=== PATIENT | female | born 2000 | race African-American/Black ===

== ENCOUNTER 2022-08-15 16:39 | Inpatient (IN) | payer BC, SELFPAY ==
[2022-08-15 16:40] VITALS: BP 130/78; BP 131/81; PULSE 73; PULSE 88; RESP 16; TEMP 37.1; O2SAT 97; BMI 21.9
--- NOTE | 2022-08-15 16:47 | ED_ITS ---
HPI - Psych General Chief Complaint: Psychiatric Symptoms Stated Complaint: section 12 Time Seen by Provider: 08/15/22 16:51 Source: patient Mode of arrival: ambulatory Limitations: no limitations History of Present Illness HPI Narrative: 21-year-old female history of major depression [facility] Section 12. According to this section was filled out by the behavioral health team patient has been off their meds for a while, paranoid and not functioning in terms of her activities of daily living. She is lacking insight, judgment, impulse control and does not feel safe in the community. According to patient she does not know why she is here she tells me she reached out to a counselor who set her up and she tells me now she is here. She tells me she voiced some concerns to this counselor, counselor explained her that these are major concerns and they called 911. Patient denies homicidal ideation and suicidal ideation. Denies drugs, alcohol, tobacco. Patient denies medical complaints at this time Related Data Allergies Allergy/AdvReac Type Severity Reaction Status Date / Time No Known Allergies Allergy Verified 08/15/22 17:00 Review of Systems Review of Systems: Constitutional : No Fever, No Chills ENT/Mouth : No Ear Pain, No Nasal Congestion, No sore throat Eyes: No Eye Pain, No Swelling, No Redness Cardiovascular : No Chest Pain, No SOB Respiratory : No Cough, No Sputum, No Dyspnea Gastrointestinal : No Nausea, No Vomiting, No Diarrhea, No Hematochezia, No Melena Genitourinary : No Dysuria, No Urinary Frequency, No Hematuria Musculoskeletal : No Myalgias Skin : No Skin Lesions, No rash Neuro : No Weakness, No Numbness, No Paresthesias, No Dizziness, No Headache Psych : positive Anxiety, positive Depression, No SI/HI All other systems reviewed and are negative Yes all other systems are reviewed and are negative [facility] Past Medical History Attestation statement: The following information was validated with the patient. Source: old records reviewed and nursing notes reviewed Social History Social History Smoked in Last 30 Days: No Use of substances other than those prescribed or required for medical reasons: No Physical Exam Vital Signs: Vital Signs: Last Vital Signs Temp 98.8 F 02/28/23 16:40 Pulse 73 08/15/22 16:40 Resp 16 08/15/22 16:40 BP 131/81 08/15/22 16:40 Pulse Ox 97 08/15/22 16:40 O2 Del Method 08/15/22 16:40 BMI result Body Mass Index 21.9 vss Appearance: Alert.? Oriented X3.? No acute distress.? Flat affect Head: Normocephalic, atraumatic, no step-offs or deformities Eyes: Pupils equal, round and reactive to light.? Neck: Normal inspection.? Neck supple.? CVS: Normal heart rate and rhythm.? Pulses normal.? Respiratory: No respiratory distress.? Breath sounds normal.? Abdomen: Soft and nontender.? Skin: Skin warm and dry.? Normal skin color.? Normal skin turgor.? Extremities: No lower extremity edema.? No calf ttp. 5/5 strength to bilateral upper and lower extremities Neuro: Oriented X 3.? No motor deficit.? No sensory deficit. CN 2-12 intact Course Reevaluation(s) Reevaluation #1: CBC appears to be within normal limits. Chemistry with no acute findings. Urine with no acute findings no signs of infection. Salicylates, acetaminophen, ethanol negative. Urine toxicology negative. COVID negative. At this time patient will be placed into observation to allow more time to be evaluated by the care team. At time observation was started patient common cooperative no acute distress will continue to monitor Time: 19:11 Reevaluation #2: In patient bedsearch Time: 19:35 Medical Decision Making Medical Decision Making [facility] Narrative: 1647 21-year-old female presents with anxiety, depression on a Section 12 for paranoia. Was seen in the community by the behavioral health team. Physical examination benign however, patient with flat affect. Concerns for possible depression versus schizophrenia. Unlikely polysubstance abuse, alcohol intoxication or metabolic disturbances. Plan at this time medical clearance evaluation by the behavioral health team pending disposition Differential Diagnosis Differential Diagnoses: The differential diagnosis associated with the presentation includes Concerns for possible depression versus schizophrenia. Unlikely polysubstance abuse, alcohol intoxication or metabolic disturbances. Admission/Observation Consideration of admission/observation: Escalation of care including admission/observation considered Consult Healthcare Provider Management of the patient was discussed with: Behavioral Health Provider ([place] bedsearch ) Lab Data [facility] Lab Attestation statement: I reviewed the patient's lab results. 08/15/22 17:04 08/15/22 17:04 Labs: Lab Results 08/15/22 08/15/22 08/15/22 Range/Units 17:04 17:04 17:04 WBC 7.8 (4.8-10.8) X10*3/uL RBC 4.53 (4.20-5.50) X10*6/uL Hgb 12.2 (12.0-16.0) g/dl Hct 37.0 (37.0-47.0) % MCV 81.7 (80.0-98.0) fL MCH 26.9 L (27.0-33.0) pg MCHC 33.0 (31.0-35.0) g/dl RDW 13.2 (11.0-16.0) % Plt Count 306 (160-400) X10*3/uL MPV 10.8 (9.4-12.3) fL Immature Gran % (Auto) 0.1 (0.0-0.4) % Neut % (Auto) 62.2 (45-73) % Lymph % (Auto) 27.7 (20-40) % [place] % (Auto) 8.7 (2-11) % Eos % (Auto) 0.8 (0-4) % Baso % (Auto) 0.5 (0-2) % Lymph # (Auto) 2.2 (1.2-4.9) X10*3/uL [place] # (Auto) 0.7 (0.1-1.2) X10*3/uL Eos # (Auto) 0.1 (0.0-0.4) X10*3/uL Baso # (Auto) 0.0 (0.0-0.2) X10*3/uL Abs Immat Gran (auto) 0.01 (0.00-0.03) X10*3/uL Absolute Neuts (auto) 4.9 (2.0-8.3) x10*3/uL Absolute Nucleated RBC 0.000 (0.0-0.012) X10*3/uL Nucleated RBC % (auto) 0.0 (0.0-0.2) /100WBC Sodium 136 (135-145) mmol/L Potassium 4.2 (3.3-5.1) mmol/L Chloride 104 (96-108) mmol/L Carbon Dioxide 21 L (22-29) mmol/L Anion Gap 15 (12-20) BUN 6 L (9-16) mg/dL Creatinine 0.85 (0.5-1.4) mg/dL Estim Creat Clear Calc 81.3 Estimated GFR > 60 Random Glucose 89 (60-115) mg/dL Calcium 9.3 (8.4-10.2) mg/dL Magnesium 1.9 (1.6-2.6) mg/dL Total Bilirubin 0.6 (0.0-1.0) mg/dL AST 17 (5-31) U/L ALT 8 (0-31) U/L Alkaline Phosphatase 55 (39-117) U/L Total Protein 7.4 (6.5-8.0) g/dL Albumin 4.1 (3.5-5.0) g/dL Urine Color Urine Appearance Urine pH (5.0-9.0) Ur Specific [place] (1.005-1.025) Urine Protein (Neg-Trace) mg/dL Urine Glucose (UA) (Negative) mg/dL Urine Ketones (Negative) mg/dL Urine Blood (Negative) Urine Nitrite (Negative) Ur Leukocyte Esterase (Negative) Urine RBC (0-2) /HPF Urine WBC (0-5) /HPF Ur Squamous Epith Cells (0-2) /HPF Urine Bacteria (None Seen) Hyaline Casts (0-2) /LPF Salicylates < 5.0 L (15-30) mg/dL Urine Opiates Screen (Not Detect) Urine Fentanyl Screen (Not Detect) Acetaminophen < 17 (<30) mcg/mL Ur Barbiturates Screen (Not Detect) Ur Phencyclidine Scrn (Not Detect) Ur Amphetamines Screen (Not Detect) U Benzodiazepines Scrn (Not Detect) Urine Cocaine Screen (Not Detect) U Marijuana (THC) Screen (Not Detect) Ethyl Alcohol < 10 mg/dL COVID-19 ([place]) Negative (Negative) COVID-19 Clin Com See Note 08/15/22 08/15/22 Range/Units 17:04 17:04 WBC (4.8-10.8) X10*3/uL RBC (4.20-5.50) X10*6/uL Hgb (12.0-16.0) g/dl Hct (37.0-47.0) % MCV (80.0-98.0) fL MCH (27.0-33.0) pg MCHC (31.0-35.0) g/dl RDW (11.0-16.0) % Plt Count (160-400) X10*3/uL MPV (9.4-12.3) fL Immature Gran % (Auto) (0.0-0.4) % Neut % (Auto) (45-73) % Lymph % (Auto) (20-40) % [place] % (Auto) (2-11) % Eos % (Auto) (0-4) % Baso % (Auto) (0-2) % Lymph # (Auto) (1.2-4.9) X10*3/uL [place] # (Auto) (0.1-1.2) X10*3/uL Eos # (Auto) (0.0-0.4) X10*3/uL Baso # (Auto) (0.0-0.2) X10*3/uL Abs Immat Gran (auto) (0.00-0.03) X10*3/uL Absolute Neuts (auto) (2.0-8.3) x10*3/uL Absolute Nucleated RBC (0.0-0.012) X10*3/uL Nucleated RBC % (auto) (0.0-0.2) /100WBC Sodium (135-145) mmol/L Potassium (3.3-5.1) mmol/L Chloride (96-108) mmol/L Carbon Dioxide (22-29) mmol/L Anion Gap (12-20) BUN (9-16) mg/dL Creatinine (0.5-1.4) mg/dL Estim Creat Clear Calc Estimated GFR Random Glucose (60-115) mg/dL Calcium (8.4-10.2) mg/dL Magnesium (1.6-2.6) mg/dL Total Bilirubin (0.0-1.0) mg/dL AST (5-31) U/L ALT (0-31) U/L Alkaline Phosphatase (39-117) U/L Total Protein (6.5-8.0) g/dL Albumin (3.5-5.0) g/dL Urine Color Yellow Urine Appearance Clear Urine pH 7.0 (5.0-9.0) Ur Specific [place] <= 1.005 (1.005-1.025) Urine Protein Negative (Neg-Trace) mg/dL Urine Glucose (UA) Negative (Negative) mg/dL Urine Ketones Negative (Negative) mg/dL Urine Blood Negative (Negative) Urine Nitrite Negative (Negative) Ur Leukocyte Esterase Small (1+) H (Negative) Urine RBC 0-2 (0-2) /HPF Urine WBC 0-5 (0-5) /HPF Ur Squamous Epith Cells 3-5 (0-2) /HPF Urine Bacteria None Seen (None Seen) Hyaline Casts 0-2 (0-2) /LPF Salicylates (15-30) mg/dL Urine Opiates Screen Not Detected (Not Detect) Urine Fentanyl Screen Not Detected (Not Detect) Acetaminophen (<30) mcg/mL Ur Barbiturates Screen Not Detected (Not Detect) Ur Phencyclidine Scrn Not Detected (Not Detect) Ur Amphetamines Screen Not Detected (Not Detect) U Benzodiazepines Scrn Not Detected (Not Detect) Urine Cocaine Screen Not Detected (Not Detect) U Marijuana (THC) Screen Not Detected (Not Detect) Ethyl Alcohol mg/dL COVID-19 ([place]) (Negative) COVID-19 Clin Com Core Measures AMI core measures followed: Yes Measure exclusions: not indicated Critical Care Time Critical Care Time Critical Care Time: No Discharge Plan Discharge Clinical Impression: Depression Patient Disposition: Still a Patient Interventions: [place]-Suicide Risk Severity Scale Last Done: 08/15/22 17:04
[2022-08-15 17:23] LABS: MANUAL DIFF FLAG NO
[2022-08-15 17:27] LABS: Appearance Urine Clear; Color Urine Yellow; Glucose Urine UA Negative (Negative); Leukocyte Esterase Urine Small (1+) (Negative); Nitrite Urine Negative (Negative); Specific Gravity - Urine <= 1.005 (1.005-1.025); UMIC TRIGGER UACC YES; Urine Blood Negative (Negative); Urine Ketones Negative (Negative); Urine Protein Negative (Neg-Trace)
[2022-08-15 17:32] LABS: Basophils Percent Auto 0.5 % (0-2); Eosinophils Absolute Auto 0.1 X10*3/uL (0.0-0.4); Eosinophils Percent Auto 0.8 % (0-4); Hemoglobin 12.2 g/dl (12.0-16.0); Imm Gran Abs Auto 0.01 X10*3/uL (0.00-0.03); Imm Gran Pct Auto 0.1 % (0.0-0.4); Lymphocytes Absolute Auto 2.2 X10*3/uL (1.2-4.9); Lymphocytes Percent Auto 27.7 % (20-40); Mean Corpuscular Hemoglobin 26.9 pg (27.0-33.0); Mean Corpuscular Volume 81.7 fL (80.0-98.0); Mean Platelet Volume 10.8 fL (9.4-12.3); Monocytes Absolute Auto 0.7 X10*3/uL (0.1-1.2); Monocytes Percent Auto 8.7 % (2-11); Neutrophils Absolute Auto 4.9 x10*3/uL (2.0-8.3); Neutrophils Percent Auto 62.2 % (45-73); Platelet Count 306 X10*3/uL (160-400); Red Blood Count 4.53 X10*6/uL (4.20-5.50); Red Cell Distribution Width 13.2 % (11.0-16.0); White Blood Count 7.8 X10*3/uL (4.8-10.8)
[2022-08-15 17:37] LABS: IDNOW Serial# 9DB6401D
[2022-08-15 17:38] LABS: COVID-19 Test Negative (Negative)
[2022-08-15 17:39] LABS: Bacteria Urine None Seen (None Seen); Hyaline Casts Urine 0-2 /LPF (0-2); RBC Urine 0-2 /HPF (0-2); UACC Culture Trigger YES; WBC Urine 0-5 /HPF (0-5)
[2022-08-15 17:40] LABS: Amphetamine Screen Urine Not Detected (Not Detect); Barbiturates, Urine Not Detected (Not Detect); Benzodiazepines Screen Urine Not Detected (Not Detect); Cannabinoid Screen Urine Not Detected (Not Detect); Cocaine Screen Urine Not Detected (Not Detect); Fentanyl, urine Not Detected (Not Detect); Opiate Screen Urine Not Detected (Not Detect); Phencyclidine Screen Urine Not Detected (Not Detect)
[2022-08-15 17:58] LABS: Acetaminophen LAB < 17 mcg/mL (<30); Alanine Aminotransferase 8 U/L (0-31); Albumin Level 4.1 g/dL (3.5-5.0); Alkaline Phosphatase 55 U/L (39-117); Anion Gap 15 (12-20); Aspartate Amino Transferase 17 U/L (5-31); Bilirubin Total 0.6 mg/dL (0.0-1.0); Blood Urea Nitrogen 6 mg/dL (9-16); Calcium 9.3 mg/dL (8.4-10.2); Carbon Dioxide 21 mmol/L (22-29); Chloride 104 mmol/L (96-108); Creatinine Clr Calc Pharmacy 81.3; Estimated Glomerular Filt Rate > 60; Ethanol < 10 mg/dL; Glucose Random 89 mg/dL (60-115); Magnesium 1.9 mg/dL (1.6-2.6); Potassium 4.2 mmol/L (3.3-5.1); Salicylate < 5.0 mg/dL (15-30); Sodium 136 mmol/L (135-145); Total Protein 7.4 g/dL (6.5-8.0)
[2022-08-15 23:04] VITALS: BP 111/70; PULSE 78; RESP 16; TEMP 37; O2SAT 98
--- NOTE | 2022-08-16 05:58 | PC.NURSE ---
Patient slept through the night, no distress observed/reported, disposition per [facility] is section 12 inpatient bed search, med rec completed/pending provider's approval, behavior non concerning, VSS, will continue to monitor.
[2022-08-16 14:12] VITALS: BP 116/76; RESP 18
--- NOTE | 2022-08-16 14:14 | PC.NURSE ---
Pt became mildly dizzy sitting up from bed, BP was taken 116/76. Resolved on own.
[2022-08-16] MEDS: hydrOXYzine HCL 25 MG TABLET PO (15:26)
--- NOTE | 2022-08-16 16:01 | PC.ADMIT ---
Patient is a 21 y/o female admitted to the unit from the pod on a CV at 1415. The patient has a dx of Major Depressive d/o, severe, unspecified Mental d/o. Patient has a had an increase in paranoia, depression and anxiety r/t risk of homelessness, car repossession and a financial hardship. She is expressing a declined in her ability to function each day. The pt was anxious upon entering the unit, extreme shaking of bilateral arms and hands, also reported feeling weak. Once pt was doing admission she stopped visibly shaking. Pt was A&O x4, mood labile and suspicious. Pt denies SI/HI/AH/VH. Pt reports an increase in her paranoia , but is vague and avoidant with explanations. Pt became fixated on information TW knew from the [facility] intake, asking why information was shared and wanted to know how she could read the intake. Pt then said, I shouldn't have come here. . Pt denied trauma or at risk of losing housing, but here intake implies the opposite. Pt denies that any medications will help her and reports that, she couldn't get them the last time they were ordered in July. . Pt blames recent stressors on, moving out of her mothers home and becoming independent, and losing a job . Pt said, I'm 21, I should be able to be on my own but instead I'm in a mental hospital. Pt also angry that when she calls her family they don't allow her to vent. Pt reports poor sleep due to racing thoughts. Pt reports a good appetite, tox screen negative. The pt has had on e IPLOC stay, PHP X1 and CSS X2 in the last few years. Patient placed on 15 minute safety checks.
[2022-08-16 16:30] VITALS: BP 103/56; PULSE 76; RESP 18; TEMP 36.8; O2SAT 99
[2022-08-17 07:00] VITALS: BMI 18.3
[2022-08-17 08:25] VITALS: BP 116/70; PULSE 90; RESP 14; TEMP 36.8; O2SAT 99
[2022-08-17] MEDS: Escitalopram Oxalate 10 MG TABLET PO (08:25)
[2022-08-17] MEDS: hydrOXYzine HCL 25 MG TABLET PO ×3 (08:25→20:41)
--- NOTE | 2022-08-17 13:44 | P.HPPS_ITS ---
HPI Date of Service: 08/17/22 Chief Complaint: SI HPI Narrative: seen individually as well as with social work therapist sriram. pt vague and evasive historian, ultimately informs MD she has a developmental disability when MD pushes, telling her we cannot do our best to help her if she withholds relevant information. she repeatedly says, this is exhausintg, and describes herself as overwhelmed. she links this state to her moving out from her house 2 years ago to live on her own. she has found the normal demands of life - working, paying for a car and rent, addressing ADLs, as unmanageable. she recently lost her car to repossession because she lost her job and could not keep up the payments. now she is facing losing her apartment as well. she reportedly called crisis telling them she could not continue to have her mental health deteriorate her everyday functioning. she reported increased anxiety and insomnia. she is having fraught relations with her family members, as she feels they have essentially abandoned her. she was started on lexapro 10 for anxiety and depression and hydroxyzine 25 TID for anxiety in the pod. zyprexa 5 QHS for insomnia and paranoia was started on admission to the unit. she identified insomnia and not understanding what i need to be doing as her most troubling experiences. DALJIT bhatia was called in after pt identified her developmental disability in order to explore resources for her in the community. pt clearly very overwhelmed by her experience, often becoming paralyzed with fear, or frustration, or sadness. agreed to DALJIT bhatia to collect collateral and inquire as to available services for her and to regroup tomorrow. Past Psychiatric History: hosps: [facility] summer 2021. feeling overwhelmed. SA: denies SIB: denies outpt: just started trherapy, no prescriber. no meds. Medical Evaluation Reviewed: Yes PMFSH Narrative: anemia asthma Family History: sister - anxiety denies SA Hx in family Social History: h/o IEP. developmental disability. HS grad. left home 2 years ago, has had a very hard time living independently since, regularly feeling overwhelmed by life's demands. Substance History: no use of tobacco or any other substances or recreational drugs Trauma History: denies Diagnostics Vital Signs (24Hr): Vital Signs - 24 hr 08/16/22 14:12 08/16/22 16:30 08/17/22 08:25 Temperature 98.3 F 98.3 F Pulse Rate 76 90 Respiratory Rate 18 18 14 Blood Pressure 116/76 103/56 L 116/70 Pulse Oximetry 99 99 Oxygen Delivery Method Room Air Room Air BMI result Body Mass Index 21.9 Labs 08/15/22 17:04 08/15/22 17:04 Labs: Laboratory Results - last 48 hr 08/15/22 08/15/22 08/15/22 17:04 17:04 17:04 WBC 7.8 RBC 4.53 Hgb 12.2 Hct 37.0 MCV 81.7 MCH 26.9 L MCHC 33.0 RDW 13.2 Plt Count 306 MPV 10.8 Immature Gran % (Auto) 0.1 Neut % (Auto) 62.2 Lymph % (Auto) 27.7 [place] % (Auto) 8.7 Eos % (Auto) 0.8 Baso % (Auto) 0.5 Lymph # (Auto) 2.2 [place] # (Auto) 0.7 Eos # (Auto) 0.1 Baso # (Auto) 0.0 Abs Immat Gran (auto) 0.01 Absolute Neuts (auto) 4.9 Absolute Nucleated RBC 0.000 Nucleated RBC % (auto) 0.0 Sodium 136 Potassium 4.2 Chloride 104 Carbon Dioxide 21 L Anion Gap 15 BUN 6 L Creatinine 0.85 Estim Creat Clear Calc 81.3 Estimated GFR > 60 Random Glucose 89 Calcium 9.3 Magnesium 1.9 Total Bilirubin 0.6 AST 17 ALT 8 Alkaline Phosphatase 55 Total Protein 7.4 Albumin 4.1 Urine Color Urine Appearance Urine pH Ur Specific [place] Urine Protein Urine Glucose (UA) Urine Ketones Urine Blood Urine Nitrite Ur Leukocyte Esterase Urine RBC Urine WBC Ur Squamous Epith Cells Urine Bacteria Hyaline Casts Salicylates < 5.0 L Urine Opiates Screen Urine Fentanyl Screen Acetaminophen < 17 Ur Barbiturates Screen Ur Phencyclidine Scrn Ur Amphetamines Screen U Benzodiazepines Scrn Urine Cocaine Screen U Marijuana (THC) Screen Ethyl Alcohol < 10 COVID-19 ([place]) Negative COVID-19 Clin Com See Note 08/15/22 08/15/22 17:04 17:04 WBC RBC Hgb Hct MCV MCH MCHC RDW Plt Count MPV Immature Gran % (Auto) Neut % (Auto) Lymph % (Auto) [place] % (Auto) Eos % (Auto) Baso % (Auto) Lymph # (Auto) [place] # (Auto) Eos # (Auto) Baso # (Auto) Abs Immat Gran (auto) Absolute Neuts (auto) Absolute Nucleated RBC Nucleated RBC % (auto) Sodium Potassium Chloride Carbon Dioxide Anion Gap BUN Creatinine Estim Creat Clear Calc Estimated GFR Random Glucose Calcium Magnesium Total Bilirubin AST ALT Alkaline Phosphatase Total Protein Albumin Urine Color Yellow Urine Appearance Clear Urine pH 7.0 Ur Specific [place] <= 1.005 Urine Protein Negative Urine Glucose (UA) Negative Urine Ketones Negative Urine Blood Negative Urine Nitrite Negative Ur Leukocyte Esterase Small (1+) H Urine RBC 0-2 Urine WBC 0-5 Ur Squamous Epith Cells 3-5 Urine Bacteria None Seen Hyaline Casts 0-2 Salicylates Urine Opiates Screen Not Detected Urine Fentanyl Screen Not Detected Acetaminophen Ur Barbiturates Screen Not Detected Ur Phencyclidine Scrn Not Detected Ur Amphetamines Screen Not Detected U Benzodiazepines Scrn Not Detected Urine Cocaine Screen Not Detected U Marijuana (THC) Screen Not Detected Ethyl Alcohol COVID-19 ([place]) COVID-19 Clin Com Meds/Allergies Meds Home Medications Medication Instructions Recorded Confirmed Type escitalopram oxalate 10 mg tablet 1 tab PO DAILY 08/15/22 08/15/22 History hydroxyzine HCl 25 mg tablet 1 tab PO TID 08/15/22 08/15/22 History Allergies Allergies Allergy/AdvReac Type Severity Reaction Status Date / Time No Known Allergies Allergy Verified 08/15/22 17:00 Mental Status Exam Mental Status Exam Narrative: cooperative. generally, calm, periods of crying and slight agitation in f rustration. disheveled, hospital [facility]. no PMA/PMR. speech nml rate, amount loudness, latency, overall. periods of elevated and increased speech when agitated. none when crying. thoughts linear and logical but also often vague and evasive, or resigned and dismissive. affect variable. constricted and non- labile to labile/irritable, to crying. mood anxious, overwhelmed. denies SI/HI/AVH. Assessment & Plan Assessment & Plan (1) Depression: Status: Acute Code(s): F32.A - Depression, unspecified (2) Developmental disability: Status: Acute Code(s): F89 - Unspecified disorder of psychological development Plan continue lexapro 10 mg daily and hydroxyzine 25 mg TID. start zyprexa 5 mg QHS for sleep and paranoia. refer for DDS services, collect collateral. Patient educated on: diagnosis and medication risk/benefits Reason for continued inpatient stay Substantial Risk for: inability to function and rapid decompensation Statement Statement: I have reviewed the history and physical and performed a pertinent examination on my patient. No changes have occurred unless specified. If the History and Physical was not performed prior to admission, the Hospitalist's service will be consulted for completing the admission physical. Time Spent With Patient Time: Total time managing care of this patient today __75__ minutes.
[2022-08-17 20:40] VITALS: BP 96/52; PULSE 701; RESP 16; TEMP 36.9; O2SAT 98
[2022-08-17] MEDS: OLANZapine 5 MG TABLET PO (20:42)
[2022-08-18 09:32] VITALS: BP 94/51; PULSE 66; RESP 16; TEMP 36.7; O2SAT 99
[2022-08-18] MEDS: Escitalopram Oxalate 10 MG TABLET PO (10:12)
[2022-08-18] MEDS: hydrOXYzine HCL 25 MG TABLET PO ×2 (10:13→14:55)
--- NOTE | 2022-08-18 15:01 | HO.PSYCHPN ---
Subjective Subjective Date of Service: 08/18/22 Reason For Visit: SI Interim History: sleeping, difficult to rouse. says she didn't sleep well last night but also feels sedated by meds. agrees to DC HS dose of atarax. does not want to cut HS zyprexa currently. per staff, stressed, anxious. in bed, napping. not attending groups, crying. upset feeling she does not have support from her family. overwhelmed. slept throguh the NOC. poor ADLs. Mental Status Exam Mental Status Exam Narrative: cooperative. calm. disheveled, hospital [facility]. no PMA/PMR. speech nml rate, decr amount, decr loudness, incr latency. thoughts vague. mood just tired. no SI/HI/AVH expressed. Diagnostics Vital Signs (24Hr): Vital Signs - 24 hr 08/17/22 20:40 08/18/22 09:32 Temperature 98.5 F 98.1 F Pulse Rate 701 H 66 Respiratory Rate 16 16 Blood Pressure 96/52 L 94/51 L Pulse Oximetry 98 99 Oxygen Delivery Method Room Air Room Air BMI result Body Mass Index 18.3 Labs 08/15/22 17:04 08/15/22 17:04 Medications Medications Current Medications Acetaminophen (Acetaminophen 325 Mg Tablet) 650 mg PO Q6H PRN PRN Reason: Headache/Pain Mild Scale (1-3) Al Hydroxide/Mg Hydroxide (Magnesium Hydrox/Alum Hydrox 30 Ml Oral.Susp) 30 ml PO Q6H PRN PRN Reason: Heartburn/Nausea Escitalopram Oxalate (Escitalopram Oxalate 10 Mg Tablet) 10 mg PO DAILY [facility] Last Admin: 08/18/22 10:12 Dose: 10 mg Hydroxyzine HCl (Hydroxyzine Hcl 25 Mg Tablet) 25 mg PO Q6H PRN PRN Reason: Anxiety Hydroxyzine HCl (Hydroxyzine Hcl 25 Mg Tablet) 25 mg PO BID@0900,1500 [facility] Magnesium Hydroxide (Milk Of Magnesia 30 Ml Oral.Susp) 30 ml PO DAILY PRN PRN Reason: Constipation Nicotine Polacrilex (Nicotine Polacrilex 2 Mg Gum) 4 mg BUCCAL Q2H PRN PRN Reason: Nicotine Cravings Olanzapine (Olanzapine 5 Mg Tablet) 5 mg PO BEDTIME [facility] Last Admin: 08/17/22 20:42 Dose: 5 mg Trazodone HCl (Trazodone Hcl 50 Mg Tablet) 50 mg PO BEDTIME MRX1 PRN PRN Reason: Insomnia Allergies Allergies Allergy/AdvReac Type Severity Reaction Status Date / Time No Known Allergies Allergy Verified 08/15/22 17:00 Assessment & Plan Assessment & Plan (1) Depression: Status: Acute Code(s): F32.A - Depression, unspecified (2) Developmental disability: Status: Acute Code(s): F89 - Unspecified disorder of psychological development Plan 08/17: continue lexapro 10 mg daily and hydroxyzine 25 mg TID. start zyprexa 5 mg QHS for sleep and paranoia. refer for DDS services, collect collateral. 08/18: DC HS dose of hydroxyzine due to apparent sedation today. if sedation continues tomorrow, lower HS zyprexa to 2.5 mg. Reason for contiued inpatient stay Substantial Risk for: inability to function and rapid decompensation Time Spent With Patient Time: Total time managing care of this patient today __20__ minutes.
[2022-08-18 18:00] VITALS: BP 108/56; PULSE 64; RESP 18; TEMP 36.6; O2SAT 97
[2022-08-19] MEDS: Escitalopram Oxalate 10 MG TABLET PO (09:20)
[2022-08-19] MEDS: Acetaminophen 325 MG TABLET 650 MG PO ×2 (09:20→15:56)
[2022-08-19] MEDS: hydrOXYzine HCL 25 MG TABLET PO ×2 (09:20→15:53)
[2022-08-19 10:37] VITALS: BP 112/77; PULSE 86; RESP 18; TEMP 36.7; O2SAT 97
--- NOTE | 2022-08-19 12:47 | P.PNPSI_ITS ---
Subjective Subjective Date of Service: 08/19/22 Reason For Visit: SI Subjective Notes: Conditional Voluntary Healthcare Proxy: No Guardianship: No Medical Problems Affecting Mental Status: No Interim History: Met with pt who continues to complain of confused thoughts- can't figure it out feels might be all the stress, but has been different than sibs/friends Had IEP in school - but was not having trouble thinking like this- this is new Depressed, low energy, can't concentrate Discussed how could be depression, depression with thought disorder- anxiety - denied hx of trauma- Medication Compliance: Yes Side effects from medications: No (but very interested in what they are) Attending Groups: Intermittent Review of Systems Acute medical concerns: No Medical Review of Systems: unchanged Mental Status Exam Mental Status Exam Patient Appearance: Appropriate Patient Orientation: Person, Place, Time and Situation Level of Consciousness: Awake Patient Behavior: Guarded, Cooperative, Anxious, Fatigued, Distractible and Confused Mood Description: Anxious Affect Description: Apprehensive Patient Cognition Impaired: No Ability to Follow Directions: Fair Speech Pattern: Clear and Difficulty Finding Words (for her thoughts) Hallucinations: None Delusions: Not Present Thought Process: Confusion Thought Content: positive for Thought Blocking (?) and positive for Disorganized (slightly) Depressive Symptoms: Increased Anxiety, Diff. Making Decisions, Hopelessness, Isolating-Friends/Family, Increased Fatigue, Loss of Energy and Difficulty C oncentrating Abnormal Motor Activity Signs and Symptoms: Restlessness Judgement: Fair Diagnostics Vital Signs (24Hr): Vital Signs - 24 hr 08/18/22 18:00 08/19/22 10:37 Temperature 97.9 F 98.1 F Pulse Rate 64 86 Respiratory Rate 18 18 Blood Pressure 108/56 L 112/77 Pulse Oximetry 97 97 Oxygen Delivery Method Room Air Room Air BMI result Body Mass Index 18.3 Labs 08/15/22 17:04 08/15/22 17:04 Medications Medications Current Medications Acetaminophen (Acetaminophen 325 Mg Tablet) 650 mg PO Q6H PRN PRN Reason: Headache/Pain Mild Scale (1-3) Last Admin: 08/19/22 09:20 Dose: 650 mg Al Hydroxide/Mg Hydroxide (Magnesium Hydrox/Alum Hydrox 30 Ml Oral.Susp) 30 ml PO Q6H PRN PRN Reason: Heartburn/Nausea Escitalopram Oxalate (Escitalopram Oxalate 10 Mg Tablet) 10 mg PO DAILY [facility] Last Admin: 08/19/22 09:20 Dose: 10 mg Hydroxyzine HCl (Hydroxyzine Hcl 25 Mg Tablet) 25 mg PO Q6H PRN PRN Reason: Anxiety Hydroxyzine HCl (Hydroxyzine Hcl 25 Mg Tablet) 25 mg PO BID@0900,1500 [facility] Last Admin: 08/19/22 09:20 Dose: 25 mg Magnesium Hydroxide (Milk Of Magnesia 30 Ml Oral.Susp) 30 ml PO DAILY PRN PRN Reason: Constipation Nicotine Polacrilex (Nicotine Polacrilex 2 Mg Gum) 4 mg BUCCAL Q2H PRN PRN Reason: Nicotine Cravings Olanzapine (Olanzapine 5 Mg Tablet) 5 mg PO BEDTIME [facility] Last Admin: 08/18/22 23:35 Dose: Not Given Trazodone HCl (Trazodone Hcl 50 Mg Tablet) 50 mg PO BEDTIME MRX1 PRN PRN Reason: Insomnia Allergies Allergies Allergy/AdvReac Type Severity Reaction Status Date / Time No Known Allergies Allergy Verified 08/15/22 17:00 Assessment & Plan Assessment & Plan (1) Depression: Status: Acute Code(s): F32.A - Depression, unspecified Assessment and Plan: with trouble thinking but not catatonic- more confused (2) Developmental disability: Status: Acute Code(s): F89 - Unspecified disorder of psychological development Assessment and Plan: maybe but not sure this is what she is complaining about- at present- seems like it is a new change she complains of that has not been with her since childhood- though she may have ASD as well Plan 3/2: continue lexapro 10 mg daily and hydroxyzine 25 mg TID. start zyprexa 5 mg QHS for sleep and paranoia. refer for DDS services, collect collateral. 33: DC HS dose of hydroxyzine due to apparent sedation today. if sedation continues tomorrow, lower HS zyprexa to 2.5 mg. Patient educated on: diagnosis and medication risk/benefits Informed Consent: further education needed (gave her lots of print outs after confering with nursing- she might be able to give us more info about what she is feeling) Reason for contiued inpatient stay Substantial Risk for: rapid decompensation Time Spent With Patient Time: Total time managing care of this patient today ____ minutes.
[2022-08-19] MEDS: OLANZapine 5 MG TABLET PO (21:49)
[2022-08-19 21:52] VITALS: RESP 16
[2022-08-20 08:45] VITALS: BP 117/69; PULSE 76; RESP 20; TEMP 36.8; O2SAT 99
[2022-08-20] MEDS: Escitalopram Oxalate 10 MG TABLET PO (08:58)
[2022-08-20] MEDS: hydrOXYzine HCL 25 MG TABLET PO (08:58)
--- NOTE | 2022-08-20 14:04 | P.PNPSI_ITS ---
Subjective Subjective Date of Service: 08/20/22 Reason For Visit: SI Subjective Notes: Conditional Voluntary Healthcare Proxy: No Guardianship: No Medical Problems Affecting Mental Status: No Interim History: Pt sleeping all morning today- didn't get up and eat lunch would not get up and talk to provider pt was very engaged yesterday ? if medications are sedating or if information given was overwhelming to patient- She would not answer Medication Compliance: Yes Side effects from medications: Yes (?sedation will dc hydroxyzine standing dose) Attending Groups: No Review of Systems Acute medical concerns: No Medical Review of Systems: changed (tired) Mental Status Exam Mental Status Exam Narrative: patient lying in bed covered in covers- not coming out to speak with provider Diagnostics Vital Signs (24Hr): Vital Signs - 24 hr 08/19/22 21:52 08/20/22 08:45 Temperature 98.3 F Pulse Rate 76 Respiratory Rate 16 20 Blood Pressure 117/69 Pulse Oximetry 99 Oxygen Delivery Method Room Air BMI result Body Mass Index 18.3 Labs 08/15/22 17:04 08/15/22 17:04 Medications Medications Current Medications Acetaminophen (Acetaminophen 325 Mg Tablet) 650 mg PO Q6H PRN PRN Reason: Headache/Pain Mild Scale (1-3) Last Admin: 08/19/22 15:56 Dose: 650 mg Al Hydroxide/Mg Hydroxide (Magnesium Hydrox/Alum Hydrox 30 Ml Oral.Susp) 30 ml PO Q6H PRN PRN Reason: Heartburn/Nausea Escitalopram Oxalate (Escitalopram Oxalate 10 Mg Tablet) 10 mg PO DAILY [facility] Last Admin: 08/20/22 08:58 Dose: 10 mg Hydroxyzine HCl (Hydroxyzine Hcl 25 Mg Tablet) 25 mg PO Q6H PRN PRN Reason: Anxiety Hydroxyzine HCl (Hydroxyzine Hcl 25 Mg Tablet) 25 mg PO BID@0900,1500 [facility] Last Admin: 08/20/22 08:58 Dose: 25 mg Magnesium Hydroxide (Milk Of Magnesia 30 Ml Oral.Susp) 30 ml PO DAILY PRN PRN Reason: Constipation Nicotine Polacrilex (Nicotine Polacrilex 2 Mg Gum) 4 mg BUCCAL Q2H PRN PRN Reason: Nicotine Cravings Olanzapine (Olanzapine 5 Mg Tablet) 5 mg PO BEDTIME [facility] Last Admin: 08/19/22 21:49 Dose: 5 mg Trazodone HCl (Trazodone Hcl 50 Mg Tablet) 50 mg PO BEDTIME MRX1 PRN PRN Reason: Insomnia Allergies Allergies Allergy/AdvReac Type Severity Reaction Status Date / Time No Known Allergies Allergy Verified 08/15/22 17:00 Assessment & Plan Assessment & Plan (1) Depression: Status: Acute Code(s): F32.A - Depression, unspecified Assessment and Plan: with trouble thinking but not catatonic- more confused (2) Developmental disability: Status: Acute Code(s): F89 - Unspecified disorder of psychological development Assessment and Plan: maybe but not sure this is what she is complaining about- at present- seems like it is a new change she complains of that has not been with her since childhood- though she may have ASD as well Plan 3/2: continue lexapro 10 mg daily and hydroxyzine 25 mg TID. start zyprexa 5 mg QHS for sleep and paranoia. refer for DDS services, collect collateral. 3/3: DC HS dose of hydroxyzine due to apparent sedation today. if sedation continues tomorrow, lower HS zyprexa to 2.5 mg. Reason for contiued inpatient stay Substantial Risk for: inability to function and rapid decompensation Time Spent With Patient Time: Total time managing care of this patient today ____ minutes.
[2022-08-20 20:25] VITALS: BP 112/62; PULSE 73; RESP 14; TEMP 36.7; O2SAT 98
[2022-08-20] MEDS: OLANZapine 5 MG TABLET PO (21:11)
[2022-08-21 08:00] VITALS: BP 113/69; PULSE 65; TEMP 36.6; O2SAT 97
[2022-08-21] MEDS: Escitalopram Oxalate 10 MG TABLET PO (08:29)
--- NOTE | 2022-08-21 15:07 | HO.PSYCHPN ---
Subjective Subjective Date of Service: 08/21/22 Reason For Visit: SI Interim History: calm, cooperative. lots of questions, long pauses. yet, far more engageable than prior. able to have a meaningful exchange of ideas. pt feels that the zyprexa has helped her a lot, to get her thoughts organized. still some trouble sleeping last night. declines increase in zyprexa to 7.5 mg at HS. asking if this will happen again, if it will be worse, what is the Dx, will she need to be on medication for the rest of her life, etc. per staff, excessive daytime sleepiness. not attending groups. in milieu eves. pleasant. feels staff are treating her differently bcse she is in a psych unit. asking for medication education. Mental Status Exam Mental Status Exam Narrative: cooperative. generally, calm. disheveled, hospital [facility]. no PMA/PMR. speech nml rate, amount, loudness, latency. thoughts linear and logical. affect constricted, normo-intense, non-labile. no SI/HI/AVH expressed. Diagnostics Vital Signs (24Hr): Vital Signs - 24 hr 08/20/22 20:25 08/21/22 08:00 Temperature 98.1 F 97.9 F Pulse Rate 73 65 Respiratory Rate 14 Blood Pressure 112/62 113/69 Pulse Oximetry 98 97 Oxygen Delivery Method Room Air Room Air BMI result Body Mass Index 18.3 Labs 08/15/22 17:04 08/15/22 17:04 Medications Medications Current Medications Acetaminophen (Acetaminophen 325 Mg Tablet) 650 mg PO Q6H PRN PRN Reason: Headache/Pain Mild Scale (1-3) Last Admin: 08/19/22 15:56 Dose: 650 mg Al Hydroxide/Mg Hydroxide (Magnesium Hydrox/Alum Hydrox 30 Ml Oral.Susp) 30 ml PO Q6H PRN PRN Reason: Heartburn/Nausea Escitalopram Oxalate (Escitalopram Oxalate 10 Mg Tablet) 10 mg PO DAILY [facility] Last Admin: 08/21/22 08:29 Dose: 10 mg Hydroxyzine HCl (Hydroxyzine Hcl 25 Mg Tablet) 25 mg PO Q6H PRN PRN Reason: Anxiety Magnesium Hydroxide (Milk Of Magnesia 30 Ml Oral.Susp) 30 ml PO DAILY PRN PRN Reason: Constipation Nicotine Polacrilex (Nicotine Polacrilex 2 Mg Gum) 4 mg BUCCAL Q2H PRN PRN Reason: Nicotine Cravings Olanzapine (Olanzapine 5 Mg Tablet) 5 mg PO BEDTIME [facility] Last Admin: 08/20/22 21:11 Dose: 5 mg Trazodone HCl (Trazodone Hcl 50 Mg Tablet) 50 mg PO BEDTIME MRX1 PRN PRN Reason: Insomnia Allergies Allergies Allergy/AdvReac Type Severity Reaction Status Date / Time No Known Allergies Allergy Verified 08/15/22 17:00 Assessment & Plan Assessment & Plan (1) Depression: Status: Acute Code(s): F32.A - Depression, unspecified Assessment and Plan: with trouble thinking but not catatonic- more confused (2) Developmental disability: Status: Acute Code(s): F89 - Unspecified disorder of psychological development Assessment and Plan: maybe but not sure this is what she is complaining about- at present- seems like it is a new change she complains of that has not been with her since childhood- though she may have ASD as well Plan 08/17: continue lexapro 10 mg daily and hydroxyzine 25 mg TID. start zyprexa 5 mg QHS for sleep and paranoia. refer for DDS services, collect collateral. 08/18: DC HS dose of hydroxyzine due to apparent sedation today. if sedation continues tomorrow, lower HS zyprexa to 2.5 mg. 08/19: Met with pt who continues to complain of confused thoughts- can't figure it out feels might be all the stress, but has been different than sibs/friends Had IEP in school - but was not having trouble thinking like this- this is new Depressed, low energy, can't concentrate Discussed how could be depression, depression with thought disorder- anxiety - denied hx of trauma- 08/20: Pt sleeping all morning today- didn't get up and eat lunch would not get up and talk to provider pt was very engaged yesterday ? if medications are sedating or if information given was overwhelming to patient- She would not answer 08/21: up and about today. feeling zyprexa very helpful to get her thoughts together. declines increase even thought continues to have insomnia. DC of scheduled hydroxyzine seems to have been instrumental in waking pt up. continue current mgmt for now. planning for DC later this week. Patient educated on: diagnosis and medication risk/benefits Reason for contiued inpatient stay Substantial Risk for: inability to function and rapid decompensation Time Spent With Patient Time: Total time managing care of this patient today _45___ minutes.
[2022-08-21 21:35] VITALS: BP 120/74; PULSE 70; RESP 16; TEMP 26.6; O2SAT 98
[2022-08-21] MEDS: OLANZapine 5 MG TABLET PO (22:24)
[2022-08-21] MEDS: hydrOXYzine HCL 25 MG TABLET PO (22:28)
[2022-08-22] MEDS: Escitalopram Oxalate 10 MG TABLET PO (09:17)
[2022-08-22 09:18] VITALS: BP 119/80; PULSE 77; RESP 18; TEMP 36.6; O2SAT 97
--- NOTE | 2022-08-22 16:34 | P.PNPSI_ITS ---
Subjective Subjective Date of Service: 08/22/22 Reason For Visit: SI Interim History: calm, cooperative. seen with DALJIT olvera. many questions, long pauses. anxious, a bit paranoid. agrees to increase zyprexa to 7.5 mg tonight. had repeated MNA: hard to stay asleep. per staff, paranoid, suspiciouis. appeared to sleep throguh the night. Mental Status Exam Mental Status Exam Narrative: cooperative. generally, calm. disheveled, hospital [facility]. no PMA/PMR. speech nml rate, amount, loudness, latency. thoughts linear and logical. affect constricted, normo-intense, non-labile. no SI/HI/AVH expressed. Diagnostics Vital Signs (24Hr): Vital Signs - 24 hr 08/21/22 21:35 08/22/22 09:18 Temperature 79.8 F L 97.8 F Pulse Rate 70 77 Respiratory Rate 16 18 Blood Pressure 120/74 119/80 Pulse Oximetry 98 97 Oxygen Delivery Method Room Air Room Air BMI result Body Mass Index 18.3 Labs 08/15/22 17:04 08/15/22 17:04 Medications Medications Current Medications Acetaminophen (Acetaminophen 325 Mg Tablet) 650 mg PO Q6H PRN PRN Reason: Headache/Pain Mild Scale (1-3) Last Admin: 08/19/22 15:56 Dose: 650 mg Al Hydroxide/Mg Hydroxide (Magnesium Hydrox/Alum Hydrox 30 Ml Oral.Susp) 30 ml PO Q6H PRN PRN Reason: Heartburn/Nausea Escitalopram Oxalate (Escitalopram Oxalate 10 Mg Tablet) 10 mg PO DAILY [facility] Last Admin: 08/22/22 09:17 Dose: 10 mg Hydroxyzine HCl (Hydroxyzine Hcl 25 Mg Tablet) 25 mg PO Q6H PRN PRN Reason: Anxiety Last Admin: 08/21/22 22:28 Dose: 25 mg Magnesium Hydroxide (Milk Of Magnesia 30 Ml Oral.Susp) 30 ml PO DAILY PRN PRN Reason: Constipation Nicotine Polacrilex (Nicotine Polacrilex 2 Mg Gum) 4 mg BUCCAL Q2H PRN PRN Reason: Nicotine Cravings Olanzapine (Olanzapine 7.5 Mg Tablet) 7.5 mg PO BEDTIME [facility] Trazodone HCl (Trazodone Hcl 50 Mg Tablet) 50 mg PO BEDTIME MRX1 PRN PRN Reason: Insomnia Allergies Allergies Allergy/AdvReac Type Severity Reaction Status Date / Time No Known Allergies Allergy Verified 08/15/22 17:00 Assessment & Plan Assessment & Plan (1) Depression: Status: Acute Code(s): F32.A - Depression, unspecified Assessment and Plan: with trouble thinking but not catatonic- more confused (2) Developmental disability: Status: Acute Code(s): F89 - Unspecified disorder of psychological development Assessment and Plan: maybe but not sure this is what she is complaining about- at present- seems like it is a new change she complains of that has not been with her since childhood- though she may have ASD as well Plan 08/17: continue lexapro 10 mg daily and hydroxyzine 25 mg TID. start zyprexa 5 mg QHS for sleep and paranoia. refer for DDS services, collect collateral. 08/18: DC HS dose of hydroxyzine due to apparent sedation today. if sedation continues tomorrow, lower HS zyprexa to 2.5 mg. 08/19: Met with pt who continues to complain of confused thoughts- can't figure it out feels might be all the stress, but has been different than sibs/friends Had IEP in school - but was not having trouble thinking like this- this is new Depressed, low energy, can't concentrate Discussed how could be depression, depression with thought disorder- anxiety - denied hx of trauma- 08/20: Pt sleeping all morning today- didn't get up and eat lunch would not get up and talk to provider pt was very engaged yesterday ? if medications are sedating or if information given was overwhelming to patient- She would not answer 08/21: up and about today. feeling zyprexa very helpful to get her thoughts together. declines increase even thought continues to have insomnia. DC of scheduled hydroxyzine seems to have been instrumental in waking pt up. continue current mgmt for now. planning for DC later this week. 08/22: repeated MNA last night, agrees to increase zyprexa. discuss Dx, arrive at psychotic depression as most likely. continue current mgmt aside from as above. Reason for contiued inpatient stay Substantial Risk for: inability to function and rapid decompensation Time Spent With Patient Time: Total time managing care of this patient today __45__ minutes.
[2022-08-22 18:00] VITALS: BP 114/66; PULSE 77; RESP 18; TEMP 36.7; O2SAT 99
[2022-08-22] MEDS: hydrOXYzine HCL 25 MG TABLET PO (20:38)
[2022-08-22] MEDS: OLANZapine 7.5 MG TABLET PO (20:38)
[2022-08-23 08:47] VITALS: BP 114/64; PULSE 76; RESP 16; TEMP 36.6; O2SAT 99
[2022-08-23] MEDS: Escitalopram Oxalate 10 MG TABLET PO (08:49)
--- NOTE | 2022-08-23 10:12 | PC.NURSE ---
Pt. was seen in the group room by OT for [facility]enu's Cognitive Level Screen (ACLS) assessment of functional cognition. Pt. scored a 5.2 on the assessment indicating a mild cognitive impairment. It is recommended that the pt. receive weekly safety checks for monitoring of impulsivity. Pt. may require assistance with employment and could potentially benefit from receiving a scrum coach.
[2022-08-23] MEDS: hydrOXYzine HCL 25 MG TABLET PO ×2 (12:18→22:07)
--- NOTE | 2022-08-23 16:28 | HO.PSYCHPN ---
Subjective Subjective Date of Service: 08/23/22 Reason For Visit: SI Interim History: seen with DALJIT olvera. calm, cooperative. many questions, long pauses, feeling overwhelmed and unsure. feels her thoughts are not adequately improved and she is interested in staying longer for more med adjustments. poor sleep again, agrees to increase to 10 on zyprexa. would like [facility] for help with meds. per staff, pleasant. low anx/dep. feeling less confused, more clear. upset at perceived lack of support from family. feeling safe. sleeping at NOC. Mental Status Exam Mental Status Exam Narrative: cooperative. generally, calm. disheveled, hospital [facility]. no PMA/PMR. speech nml rate, amount, loudness, latency. thoughts linear and logical. affect constricted, normo-intense, non-labile. no SI/HI/AVH expressed. Diagnostics Vital Signs (24Hr): Vital Signs - 24 hr 08/22/22 18:00 08/23/22 08:47 Temperature 98.1 F 97.8 F Pulse Rate 77 76 Respiratory Rate 18 16 Blood Pressure 114/66 114/64 Pulse Oximetry 99 99 Oxygen Delivery Method Room Air Room Air BMI result Body Mass Index 18.3 Labs 08/15/22 17:04 08/15/22 17:04 Medications Medications Current Medications Acetaminophen (Acetaminophen 325 Mg Tablet) 650 mg PO Q6H PRN PRN Reason: Headache/Pain Mild Scale (1-3) Last Admin: 08/19/22 15:56 Dose: 650 mg Al Hydroxide/Mg Hydroxide (Magnesium Hydrox/Alum Hydrox 30 Ml Oral.Susp) 30 ml PO Q6H PRN PRN Reason: Heartburn/Nausea Escitalopram Oxalate (Escitalopram Oxalate 10 Mg Tablet) 10 mg PO DAILY [facility] Last Admin: 08/23/22 08:49 Dose: 10 mg Hydroxyzine HCl (Hydroxyzine Hcl 25 Mg Tablet) 25 mg PO Q6H PRN PRN Reason: Anxiety Last Admin: 08/23/22 12:18 Dose: 25 mg Magnesium Hydroxide (Milk Of Magnesia 30 Ml Oral.Susp) 30 ml PO DAILY PRN PRN Reason: Constipation Nicotine Polacrilex (Nicotine Polacrilex 2 Mg Gum) 4 mg BUCCAL Q2H PRN PRN Reason: Nicotine Cravings Olanzapine (Olanzapine 10 Mg Tablet) 10 mg PO BEDTIME [facility] Trazodone HCl (Trazodone Hcl 50 Mg Tablet) 50 mg PO BEDTIME MRX1 PRN PRN Reason: Insomnia Allergies Allergies Allergy/AdvReac Type Severity Reaction Status Date / Time No Known Allergies Allergy Verified 08/15/22 17:00 Assessment & Plan Assessment & Plan (1) Depression: Status: Acute Code(s): F32.A - Depression, unspecified Assessment and Plan: with trouble thinking but not catatonic- more confused (2) Developmental disability: Status: Acute Code(s): F89 - Unspecified disorder of psychological development Assessment and Plan: maybe but not sure this is what she is complaining about- at present- seems like it is a new change she complains of that has not been with her since childhood- though she may have ASD as well Plan 08/17: continue lexapro 10 mg daily and hydroxyzine 25 mg TID. start zyprexa 5 mg QHS for sleep and paranoia. refer for DDS services, collect collateral. 08/18: DC HS dose of hydroxyzine due to apparent sedation today. if sedation continues tomorrow, lower HS zyprexa to 2.5 mg. 08/19: Met with pt who continues to complain of confused thoughts- can't figure it out feels might be all the stress, but has been different than sibs/friends Had IEP in school - but was not having trouble thinking like this- this is new Depressed, low energy, can't concentrate Discussed how could be depression, depression with thought disorder- anxiety - denied hx of trauma- 08/20: Pt sleeping all morning today- didn't get up and eat lunch would not get up and talk to provider pt was very engaged yesterday ? if medications are sedating or if information given was overwhelming to patient- She would not answer 08/21: up and about today. feeling zyprexa very helpful to get her thoughts together. declines increase even thought continues to have insomnia. DC of scheduled hydroxyzine seems to have been instrumental in waking pt up. continue current mgmt for now. planning for DC later this week. 08/22: repeated MNA last night, agrees to increase zyprexa. discuss Dx, arrive at psychotic depression as most likely. continue current mgmt aside from as above. 08/23: once again feeling not well enough to leave. poor sleep. agrees to increase zyprexa to 10 mg. T/C mood stabilizer if pt continues to have sleeping difficulties. Reason for contiued inpatient stay Substantial Risk for: inability to function and rapid decompensation Time Spent With Patient Time: Total time managing care of this patient today __35__ minutes.
[2022-08-23 20:00] VITALS: BP 118/74; PULSE 66; RESP 18; TEMP 36.6; O2SAT 99
[2022-08-23] MEDS: OLANZapine 10 MG TABLET PO (20:46)
[2022-08-23] MEDS: traZODone HCL 50 MG TABLET PO ×2 (20:47→22:07)
[2022-08-24 07:00] VITALS: BMI 19.5
[2022-08-24] MEDS: Escitalopram Oxalate 10 MG TABLET PO (09:08)
[2022-08-24 09:15] VITALS: BP 106/58; PULSE 104; RESP 18; TEMP 36.7; O2SAT 97
--- NOTE | 2022-08-24 15:06 | HO.PSYCHPN ---
Subjective Subjective Date of Service: 08/24/22 Reason For Visit: SI Interim History: calm, cooperative. seen with DALJIT haasmatthew. reports no change in her sleep - still DFA as well as MNA. states she is less depressed and less anxious than prior, however. less confused as well. c/o muscle twitches in arm, informed to seek out RN if it becomes anything like a sustained contraction. asks to have trazodone and hydroxyzine scheduled at HS. would like to leave before sunday, which is [birth year] birthday. we all agree to give current regimen one more day and then meet again tomorrow to decide on discharge date. per staff, c/o poor sleep. still anxious and depressed, but improving. med and meal compliant. anxious about her family's opinions of her. some twitching in right arm last night. Mental Status Exam Mental Status Exam Narrative: cooperative. generally, calm. disheveled, hospital [facility]. no PMA/PMR. speech nml rate, amount, loudness, latency. thoughts linear and logical. affect constricted, normo-intense, non-labile. no SI/HI/AVH expressed. Diagnostics Vital Signs (24Hr): Vital Signs - 24 hr 08/23/22 20:00 08/24/22 09:15 Temperature 97.9 F 98.1 F Pulse Rate 66 104 H Respiratory Rate 18 18 Blood Pressure 118/74 106/58 L Pulse Oximetry 99 97 Oxygen Delivery Method Room Air Room Air BMI result Body Mass Index 18.3 Labs 08/15/22 17:04 08/15/22 17:04 Medications Medications Current Medications Acetaminophen (Acetaminophen 325 Mg Tablet) 650 mg PO Q6H PRN PRN Reason: Headache/Pain Mild Scale (1-3) Last Admin: 08/19/22 15:56 Dose: 650 mg Al Hydroxide/Mg Hydroxide (Magnesium Hydrox/Alum Hydrox 30 Ml Oral.Susp) 30 ml PO Q6H PRN PRN Reason: Heartburn/Nausea Escitalopram Oxalate (Escitalopram Oxalate 10 Mg Tablet) 10 mg PO DAILY RENAE Last Admin: 08/24/22 09:08 Dose: 10 mg Hydroxyzine HCl (Hydroxyzine Hcl 25 Mg Tablet) 25 mg PO BEDTIME RENAE Hydroxyzine HCl (Hydroxyzine Hcl 25 Mg Tablet) 25 mg PO Q6H PRN PRN Reason: Anxiety Last Admin: 08/23/22 22:07 Dose: 25 mg Magnesium Hydroxide (Milk Of Magnesia 30 Ml Oral.Susp) 30 ml PO DAILY PRN PRN Reason: Constipation Nicotine Polacrilex (Nicotine Polacrilex 2 Mg Gum) 4 mg BUCCAL Q2H PRN PRN Reason: Nicotine Cravings Olanzapine (Olanzapine 10 Mg Tablet) 10 mg PO BEDTIME RENAE Last Admin: 08/23/22 20:46 Dose: 10 mg Trazodone HCl (Trazodone Hcl 50 Mg Tablet) 50 mg PO BEDTIME RENAE Trazodone HCl (Trazodone Hcl 50 Mg Tablet) 50 mg PO BEDTIME MRX1 PRN PRN Reason: Insomnia Last Admin: 08/23/22 22:07 Dose: 50 mg Allergies Allergies Allergy/AdvReac Type Severity Reaction Status Date / Time No Known Allergies Allergy Verified 08/15/22 17:00 Assessment & Plan Assessment & Plan (1) Depression: Status: Acute Code(s): F32.A - Depression, unspecified Assessment and Plan: with trouble thinking but not catatonic- more confused (2) Developmental disability: Status: Acute Code(s): F89 - Unspecified disorder of psychological development Assessment and Plan: maybe but not sure this is what she is complaining about- at present- seems like it is a new change she complains of that has not been with her since childhood- though she may have ASD as well Plan 3/2: continue lexapro 10 mg daily and hydroxyzine 25 mg TID. start zyprexa 5 mg QHS for sleep and paranoia. refer for DDS services, collect collateral. 33: DC HS dose of hydroxyzine due to apparent sedation today. if sedation continues tomorrow, lower HS zyprexa to 2.5 mg. 08/19: Met with pt who continues to complain of confused thoughts- can't figure it out feels might be all the stress, but has been different than sibs/friends Had IEP in school - but was not having trouble thinking like this- this is new Depressed, low energy, can't concentrate Discussed how could be depression, depression with thought disorder- anxiety - denied hx of trauma- 08/20: Pt sleeping all morning today- didn't get up and eat lunch would not get up and talk to provider pt was very engaged yesterday ? if medications are sedating or if information given was overwhelming to patient- She would not answer 08/21: up and about today. feeling zyprexa very helpful to get her thoughts together. declines increase even thought continues to have insomnia. DC of scheduled hydroxyzine seems to have been instrumental in waking pt up. continue current mgmt for now. planning for DC later this week. 08/22: repeated MNA last night, agrees to increase zyprexa. discuss Dx, arrive at psychotic depression as most likely. continue current mgmt aside from as above. 08/23: once again feeling not well enough to leave. poor sleep. agrees to increase zyprexa to 10 mg. T/C mood stabilizer if pt continues to have sleeping difficulties. 08/24: twitch in arm last night. schedule trazodone and hydroxyzine at HS per pt request. otherwise continue current mgmt. D/C over w/e. Reason for contiued inpatient stay Substantial Risk for: inability to function and rapid decompensation Time Spent With Patient Time: Total time managing care of this patient today _35___ minutes.
[2022-08-24 22:25] VITALS: BP 90/53; PULSE 64; RESP 16; TEMP 36.4; O2SAT 98
[2022-08-24] MEDS: OLANZapine 10 MG TABLET PO (22:27)
[2022-08-24] MEDS: hydrOXYzine HCL 25 MG TABLET PO (22:28)
[2022-08-24] MEDS: traZODone HCL 50 MG TABLET PO (22:28)
[2022-08-25] MEDS: Escitalopram Oxalate 10 MG TABLET PO (09:31)
[2022-08-25 09:45] VITALS: BP 94/53; PULSE 91; RESP 18; TEMP 36.9; O2SAT 99
--- NOTE | 2022-08-25 11:45 | P.DS_ITS ---
DS: Providers Provider Date of Service: 08/25/22 Date of admission: 08/16/22 13:15 Primary care physician: Unknown Physician DS: Diagnosis Discharge Diagnosis (1) Depression: Status: Acute (2) Developmental disability: Status: Acute DS: Medications Discharge Medications Home Medications: Previous Rx's Medication Instructions Recorded escitalopram oxalate 10 mg tablet 1 tab PO DAILY 30 days #30 tabs 08/25/22 hydroxyzine HCl 25 mg tablet 25 mg PO BEDTIME 30 days #30 tabs 08/25/22 olanzapine 10 mg tablet 10 mg PO BEDTIME 30 days #30 tabs 08/25/22 trazodone 50 mg tablet 50 mg PO BEDTIME 30 days #30 tabs 08/25/22 Mental Status Exam Mental Status Exam Narrative: cooperative, calm. disheveled, hospital [facility]. no PMA/PMR. speech nml rate, incr amount. nml loudness, latency. thoughts linear and logical, clearly some paucity of thought and executive function deficits. affect constricted, normo- intense, non-labile. mood better. no SI/HI/AVH. Data Data Completed and Pending Completed studies during hospitalization [Text1]: 08/15/22 Unknown Urine clean catch - Urine pham top Urine Culture - Final Additional Comments Additional comments: recommend neuropsych testing to clarify deficits DS: Summary Hospital Course Hospital Course: per 08/17 admission note: seen individually as well as with social media marketing manager sriram.? pt vague and evasive historian, ultimately informs MD she has a developmental disability when MD pushes, telling her we cannot do our best to help her if she withholds relevant information.? she repeatedly says, this is exhausintg, and describes herself as overwhelmed. ? she links this state to her moving out from her house 2 years ago to live on her own.? she has found the normal demands of life - working, paying for a car and rent, addressing ADLs, as unmanageable.? she recently lost her car to repossession because she lost her job and could not keep up the payments.? now she is facing losing her apartment as well.? she reportedly called crisis telling them she could not continue to have her mental health deteriorate her everyday functioning. ? she reported increased anxiety and insomnia.? she is having fraught relations with her family members, as she feels they have essentially abandoned her. she was started on lexapro 10 for anxiety and depression and hydroxyzine 25 TID for anxiety in the pod.? zyprexa 5 QHS for insomnia and paranoia was started on admission to the unit.? she identified insomnia and not understanding what i need to be doing as her most troubling experiences.? DALJIT bhatia was called in after pt identified her developmental disability in order to explore resources for her in the community.? pt clearly very overwhelmed by her experience, often becoming paralyzed with fear, or frustration, or sadness.? agreed to DALJIT bhatia to collect collateral and inquire as to available services for her and to regroup tomorrow. Past Psychiatric History: hosps: [facility] summer 2021.? feeling overwhelmed. SA: denies SIB: denies outpt: just started trherapy, no prescriber.? no meds. Medical Evaluation Reviewed: Yes PMF Narrative: anemia asthma Family History: sister - anxiety denies SA Hx in family Social History: h/o IEP. developmental disability. HS grad. left home 2 years ago, has had a very hard time living independently since, regularly feeling overwhelmed by life's demands. Substance History: no use of tobacco or any other substances or recreational drugs Trauma History: denies Precis: 08/17: continue lexapro 10 mg daily and hydroxyzine 25 mg TID, started in the ED. start zyprexa 5 mg QHS for sleep and paranoia. refer for DDS services, collect collateral. 08/18: DC HS dose of hydroxyzine due to apparent sedation today.? if sedation continues tomorrow, lower HS zyprexa to 2.5 mg. 08/19:? Met with pt who continues to complain of confused thoughts- can't figure it out feels might be all the stress, but has been different than sibs/friends Had IEP in school - but was not having trouble thinking like this- this is new Depressed, low energy, can't concentrate Discussed how could be depression, depression with thought disorder- anxiety - denied hx of trauma- 08/20:? Pt sleeping all morning today- didn't get up and eat lunch would not get up and talk to provider pt was very engaged yesterday ? if medications are sedating or if information given was overwhelming to patient- She would not answer 08/21:? up and about today.? feeling zyprexa very helpful to get her thoughts together.? declines increase even thought continues to have insomnia.? DC of scheduled hydroxyzine seems to have been instrumental in waking pt up.? continue current mgmt for now.? planning for DC later this week. 08/22:? repeated MNA last night, agrees to increase zyprexa.? discuss Dx, arrive at psychotic depression as most likely.? continue current mgmt aside from as above. 08/23:? once again feeling not well enough to leave.? poor sleep.? agrees to increase zyprexa to 10 mg.? T/C mood stabilizer if pt continues to have sleeping difficulties. 08/24:? twitch in arm last night.? schedule trazodone and hydroxyzine at HS per pt request.? otherwise continue current mgmt.? D/C over w/e. 08/25: feeling well and ready to leave today, then very ambivalent. with much education and supprt by/with DALJIT olvera, pt ultimately decided to discharge today. aftercare in place. Time Spent with Patient Time attestation: Total time managing care of this patient today ____ minutes. 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 -Once you attend this intake appointment, you will then be set up with therapy, psychiatry, and a CSP (community support program) worker.) [employer] Production Manager [Other] - 1 Week (Please follow up with Krysten at the number listed above once you return home) Physician,Unknown J [Primary Care Provider] - 1 Week Discharge Medications: New trazodone 50 mg Tablet 50 mg PO BEDTIME 30 Days Qty: 30 0RF olanzapine 10 mg Tablet 10 mg PO BEDTIME 30 Days Qty: 30 0RF hydroxyzine HCl 25 mg Tablet 25 mg PO BEDTIME 30 Days Qty: 30 0RF Continued escitalopram oxalate 10 mg tablet 1 tab PO DAILY 30 Days Qty: 30 0RF Discontinued hydroxyzine HCl 25 mg tablet 1 tab PO TID Discharge Orders: Discharge Order (Routine); Ordered 08/25/22 Ordered By: Yovani Sanders Diet: Advance to usual diet Activity on Discharge: As tolerated Stand Alone Forms: Patient Portal Discharge page, Community Support Care Plan Goals: remain safe and stable in the outpatient treatment setting Health Concerns: none Plan of Treatment: take medications as prescribed, attend appointments as scheduled. ask your mental health providers about neuropsychological testing to assess your cognition. Assessment: not at imminent risk of harm to self or others Discharge Date/Time: 08/25/22 13:10
--- NOTE | 2022-08-25 12:54 | PC.NURSE ---
Patient alert, oriented x3. States she continues to feel 'confused,' appears anxious about discharge but denies. SW aware. Denies SI/HI, denies AH/VH- states that this was never an issue for her but feels 'confused.' Reviewed discharge plan and referrals, pt verbalizes understanding. States she does not have a PCP. Encouraged to ask antenna specialist or family to find one and make appt. Pt verbalized understanding of instructions. Reviewed belongings- no concerns reported.
== END 2022-08-25 13:10 | disposition home or self-care (01) | DRG 751 ==
LOC: HO.ED 08-16 07:48 → HO.PADLT16 08-16 13:32
PROVIDERS: Physician Assistant; Admitting Provider Psychiatry & Neurology Psychiatry; Emergency Provider Emergency Medicine; Visit Provider Psychiatry & Neurology Psychiatry
DX: F32.3 Major depressive disorder, single episode, severe with psychotic features (principal); F89 Unspecified disorder of psychological development; J45.909 Unspecified asthma, uncomplicated; Z20.822 Contact with and (suspected) exposure to COVID-19; Z79.899 Other long term (current) drug therapy
CPT/HCPCS: 80053; 80143; 80179; 80307; 81001; 82077; 83735; 85025; 87086; 87635; 99285

== ENCOUNTER 2024-10-29 10:25 | Outpatient (REF) | payer OTHER, SELFPAY ==
--- OUTSIDE RECORDS SUMMARY | 2024-10-29 11:29 | XMS_ITS | Clinical Summary ---
Author Organization [facility] Address [address] [place] [address] Phone Care Team Providers Care Optomechanical Engineer Name Role Phone Pooja Gardner MD Primary Care Provider [phone] Allergies Active Allergy Reactions Criticality Noted Date Comments Cat Dander Unknown 03/24/2022 Dog Dander Unknown 03/24/2022 House Dust Mite Unknown 11/15/2021 Medications fluticasone propionate (FLONASE) 50 mcg/actuation nasal spray 09/04/2024 Active hydrOXYzine HCL (ATARAX) 25 mg tablet Take 1 tablet (25 mg total) by mouth. 09/21/2021 Active lurasidone (LATUDA) 20 mg tablet 09/19/2024 Active ferrous sulfate 325 mg (65 mg elemental iron) tablet Take 1 tablet (325 mg total) by mouth 1 (one) time each day. 02/14/2021 Active nitrofurantoin, macrocrystal-mo nohydrate, (MACROBID) 100 mg capsule Take 1 capsule (100 mg total) by mouth 2 (two) times a day for 5 days. 10 each 10/03/2024 10/09/19 25 Active Problems No known active problems Encounters Date Type Department Care Team Description 10/29/2024 [facility] [address] [place] [phone] Pooja Gardner MD Medication 10/27/2024 5:30 PM EDT Office Visit Walk-In Clinic - [address] [phone] Nicole Perkins NP Acute pain of right knee (Primary Dx) 10/27/2024 Telephone Internal [address] [phone] Pooja Gardner MD Knee Pain 10/07/[address] [phone] Pooja Gardner MD provider call back 10/07/[address] [phone] Pooja Gardner MD provider call back 10/02/2024 11:30 AM EDT Office Visit Internal [address] [phone] Pooja Gardner MD Other fatigue (Primary Dx); History of anemia; Forgetfulness; Screening for deficiency anemia 10/02/[address] [phone] Pooja Gardner MD 09/25/[address] [phone] Pooja Gardner MD Fatigue from Last 3 Months Social History Tobacco Use Types Packs/Day Years Used Date Smoking Tobacco: Never Passive Smoke Exposure: Never Smokeless Tobacco: Never Tobacco Cessation:Counseling Given: Not Answered Comments No Sex and Gender Information Value Date Recorded Sex Assigned at Not on file Legal Sex Female 6:51 AM EST Gender Identity Not on file Sexual Orientation Not on file Obstetrics History Last Filed Vital Signs Vital Sign Reading Time Taken Comments Blood Pressure 94/64 10/27/2024 5:21 PM EDT Pulse 79 10/27/2024 5:21 PM EDT Temperature 36.7 ??C (98 ??F) 10/27/2024 5:21 PM EDT Respiratory Rate - - Oxygen Saturation 99% 10/27/2024 5:21 PM EDT Inhaled Oxygen Concentration - - Weight 51.8 kg (114 lb 4.8 oz) 10/02/2024 11:45 AM EDT Height - - Body Mass Index - - Plan of Treatment Upcoming Encounters Date Type Department Care Team (Late st Contact Info) Description 11/14/2024 11:00 AM EDT Office Visit Internal Medicine - [address] [phone] Rose Norris NP [address] [place] [address] 11/20/2024 3:30 PM EDT Office Visit Internal Medicine - [address] [phone] Pooja Gardner MD [address] [place] [address] Health Maintenance Due Date Last Done Comments Pneumococcal Vaccine: Pediatrics (0 to 5 Years) and At-Risk Patients (6 to 64 Years) (1 of 2 - PCV) 2017 Cervical Cancer Screening: Pap Smear 08/29/2019 DTaP,Tdap,and Td Vaccines (7 - Td or Tdap) 11/23/2019 11/22/2009, 09/08/2003, 12/16/1999, Additional history exists Depression Screening 05/21/2022 HIV Screening 05/21/2022 Hepatitis C Screening 05/21/2022 Social Influencers of Health Screening 05/21/2022 COVID-19 Vaccine ( season) 2024 11/16/2022, 08/16/2021, 07/26/2021 Influenza Vaccine (Season Ended) 2025 05/13/2019, 03/08/2017, 05/02/2013, Additional history exists Cholesterol Screening (Lipid Panel) 10/02/2029 10/02/2024 HIB Vaccines Completed 12/16/1999, 02/16, 1998, Additional history exists Hepatitis B Vaccines Completed 12/16/1999, 1998, 1998 IPV Vaccines Completed 02/18/2003, 11/18, 1998, Additional history exists MMR Vaccines Completed 09/08/2003, 12/16/1999 Varicella Vaccines Completed 11/22/2009, 09/09/1999 HPV Vaccines Completed 01/02/2014, 12/17, 11/10/2008 Hepatitis A Vaccines Completed 01/02/2014, 01/02/20 13 Meningococcal ACWY Vaccine Completed 02/16/2016, Meningococcal B Vaccine Aged Out No l onger eligible based on patient's age to complete this topic RSV Immunization Patients Under 20 months Aged Out No longer eligible based on patient's age to complete this topic Procedures Procedure Name Priority Date/Time Associated Diagnosis Comments MARTINEZ URINE CULTURE TUBE Routine 10/02/2024 1:38 PM EDT Other fatigue URINALYSIS WITH REFLEX MICROSCOPIC AND CULTURE Routine 10/02/2024 1:38 PM EDT Other fatigue URINALYSIS WITH REFLEX MICROSCOPIC AND CULTURE Routine 10/02/2024 1:38 PM EDT Other fatigue CULTURE URINE Routine 10/02/2024 1:38 PM EDT Other fatigue COMPREHENSIVE METABOLIC PANEL Routine 10/02/2024 1:08 PM EDT Other fatigue THYROID STIMULATING HORMONE WITH REFLEX TO FREE T4 AND FREE T3 Routine 10/02/2024 1:08 PM EDT Other fatigue LIPID PANEL WITH REFLEX TO DIRECT LDL Routine 10/02/2024 1:08 PM EDT Other fatigue VITAMIN D 25 HYDROXY Routine 10/02/2024 1:08 PM EDT History of anemia VITAMIN B12 Routine 10/02/2024 1:08 PM EDT History of anemia IRON AND TIBC Routine 10/02/2024 1:08 PM EDT History of anemia FERRITIN Routine 10/02/2024 1:08 PM EDT History of anemia from Last 3 Months Results * (ABNORMAL) Urinalysis with reflex microscopic and culture (10/02/2024 1:38 PM EDT) Specific [place] Urine 1.014 1.003 - 1.030 LAB URINALYSIS - AUTOMATED METHOD 10/02/2024 3:56 PM [facility] pH, Urine 6.0 5.0 - 8.0 pH LAB URINALYSIS - AUTOMATED METHOD 10/02/2024 3:56 PM [facility] Leukocytes, Urine Large(A) Negative LAB URINALYSIS - AUTOMATED METHOD 10/02/2024 3:56 PM [facility] Nitrite, Urine Negative Negative LAB URINALYSIS - AUTOMATED METHOD 10/02/2024 3:56 PM [facility] Protein, Urine Negative <=Trace mg/dL LAB URINALYSIS - AUTOMATED METHOD 10/02/2024 3:56 PM [facility] Glucose, Urine Negative Negative mg/dL LAB URINALYSIS - AUTOMATED METHOD 10/02/2024 3:56 PM [facility] Ketones, Urine Negative Negative mg/dL LAB URINALYSIS - AUTOMATED METHOD 10/02/2024 3:56 PM [facility] Urobilinogen, Urine 0.2 0.2 - 1.0 mg/dL LAB URINALYSIS - AUTOMATED METHOD 10/02/2024 3:56 PM [facility] Bilirubin, Urine Negative Negative LAB URINALYSIS - AUTOMATED METHOD 10/02/2024 3:56 PM [facility] Blood, Urine Negative Negative LAB URINALYSIS - AUTOMATED METHOD 10/02/2024 3:56 PM [facility] RBC, Urine 3.3 0 - 4 /HPF LAB URINALYSIS - AUTOMATED METHOD 10/02/2024 3:56 PM [facility] WBC, Urine 71.0(H) 0 - 4 /HPF LAB URINALYSIS - AUTOMATED METHOD 10/02/2024 3:56 PM EDT [facility] Squamous Epithelial, Urine >100(H) 0 - 60 /LPF LAB URINALYSIS - AUTOMATED METHOD 10/02/2024 3:56 PM EDT [facility] Bacteria, Urine Few(A) Negative /HPF LAB URINALYSIS - AUTOMATED METHOD 10/02/2024 3:56 PM EDT [facility] Hyaline Casts, Urine 5.6(H) 0 - 3 /LPF LAB URINALYSIS - AUTOMATED METHOD 10/02/2024 3:56 PM EDT [facility] Urine Urine specimen obtained by clean catch procedure / Unknown Non-blood Collection / Unknown 10/02/2024 1:38 PM EDT 10/02/2024 1:38 PM EDT Pooja Gardner MD LAB URINE ORDERABLES Final Res ult Performing Organization Address City/[facility]/ZIP Co de Phone Number [facility] [address] [place] [address], [place] [phone] * Martinez urine culture tube (10/02/2024 1:38 PM EDT) Extra Tube Hold for add-ons. 10/02/2024 4:01 PM EDT [facility] Comment:Auto resulted. Urine Urine specimen obtained by clean catch procedure / Unknown Non-blood Collection / Unknown 10/02/2024 1:38 PM EDT 10/02/2024 1:38 PM EDT us Pooja Gardner MD LAB URINE ORDERABLES Final Res ult Performing Organization Address City/[facility]/ZIP Co de Phone Number [facility] [address] [place] [address], [place] [phone] * Culture urine (10/02/2024 1:38 PM EDT) [facility] Culture, Urine 50,000-99,000 CFU/mL Mixed urogenital aye, no uropathogens present. Suggest repeat specimen if clinically indicated. 10/03/2024 1:50 PM EDT [facility] Urine Urine specimen obtained by clean catch procedure / Unknown Non-blood Collection / Unknown 10/02/2024 1:38 PM EDT 10/02/2024 3:56 PM EDT Pooja Gardner MD LAB MICROBIOLOGY - GENERAL ORD ERABLES Final Result Performing Organization Address [facility]/ZIP Co de Phone Number [facility] [address] [place] [address], [place] [phone] * Thyroid stimulating hormone with reflex to free t4 and free t3 (10/02/2024 1:08 PM EDT) [facility] TSH 1.16 0.40 - 4.00 mcIU/mL LAB CHEMISTRY METHOD 10/02/2024 5:29 PM EDT [facility] Blood Venous blood specimen / Unknown Venipuncture / Unknown 10/02/2024 1:08 PM EDT 10/02/2024 1:08 PM EDT us Pooja Gardner MD LAB BLOOD ORDERABLES Final Res ult Performing Organization Address City/[facility]/ZIP Co de Phone Number [facility] [address] [place] [address], [place] [phone] * (ABNORMAL) Lipid panel with reflex to direct LDL (10/02/2024 1:08 PM EDT) [facility] Cholesterol 222(H) 0 - 200 mg/dL LAB CHEMISTRY METHOD 10/02/2024 4:24 PM EDT [facility] Triglycerides 77 0 - 150 mg/dL LAB CHEMISTRY METHOD 10/02/2024 4:24 PM EDT [facility] HDL 97 >=40 mg/dL LAB CHEMISTRY METHOD 10/02/2024 4:24 PM EDT [facility] LDL Calculated 110(H) 0 - 100 mg/dL LAB CHEMISTRY METHOD 10/02/2024 4:24 PM EDT [facility] VLDL Cholesterol Gildardo 15.4 mg/dL LAB CHEMISTRY METHOD 10/02/2024 4:24 PM EDT [facility] Non HDL Chol. (LDL+VLDL) 125 <145 mg/dL LAB CHEMISTRY METHOD 10/02/2024 4:24 PM EDT [facility] Chol/HDL Ratio 2.3 0.0 - 4.4 LAB CHEMISTRY METHOD 10/02/2024 4:24 PM EDT [facility] Blood Venous blood specimen / Unknown Venipuncture / Unknown 10/02/2024 1:08 PM EDT 10/02/2024 1:08 PM EDT Pooja Gardner MD LAB BLOOD ORDERABLES Final Res ult [facility] [address] [place] [address], [place] [phone] * (ABNORMAL) Iron and TIBC (10/02/2024 1:08 PM EDT) Iron 25(L) 40 - 150 mcg/dL LAB CHEMISTRY METHOD 10/02/2024 3:50 PM EDT [facility] TIBC 439 250 - 450 mcg/dL LAB CHEMISTRY METHOD 10/02/2024 3:50 PM EDT [facility] Iron Saturation 6(L) 15 - 50 % LAB CHEMISTRY METHOD 10/02/2024 3:50 PM EDT [facility] Blood Venous blood specimen / Unknown Venipuncture / Unknown 10/02/2024 1:08 PM EDT 10/02/2024 1:08 PM EDT us Pooja Gardner MD LAB BLOOD ORDERABLES Final Res ult Performing Organization Address City/[facility]/ZIP Co de Phone Number [facility] [address] [place] [address], [place] [phone] * Vitamin D 25 hydroxy (10/02/2024 1:08 PM EDT) [facility] Vit D, 25-Hydroxy 62.2 30.0 - 80.0 ng/mL LAB CHEMISTRY METHOD 10/02/2024 4:46 PM EDT [facility] Blood Venous blood specimen / Unknown Venipuncture / Unknown 10/02/2024 1:08 PM EDT 10/02/2024 1:08 PM EDT Pooja Gardner MD LAB BLOOD ORDERABLES Final Res ult Performing Organization Address [facility]/ZIP Co de Phone Number [facility] [address] [place] [address], [place] [phone] * Ferritin (10/02/2024 1:08 PM EDT) [facility] Ferritin 8 8 - 252 ng/mL LAB CHEMISTRY METHOD 10/02/2024 4:24 PM EDT [facility] Blood Venous blood specimen / Unknown Venipuncture / Unknown 10/02/2024 1:08 PM EDT 10/02/2024 1:08 PM EDT us Pooja Gardner MD LAB BLOOD ORDERABLES Final Res ult Performing Organization Address City/[facility]/ZIP Co de Phone Number [facility] [address] [place] [address], [place] [phone] * (ABNORMAL) Vitamin B12 (10/02/2024 1:08 PM EDT) [facility] Vitamin B-12 1,322(H) 250 - 900 pcg/mL LAB CHEMISTRY METHOD 10/02/2024 4:13 PM EDT [facility] Blood Venous blood specimen / Unknown Venipuncture / Unknown 10/02/2024 1:08 PM EDT 10/02/2024 1:08 PM EDT us Pooja Gardner MD LAB BLOOD ORDERABLES Final Res ult [facility] [address] [place] [address], [place] [phone] * Comprehensive metabolic panel (10/02/2024 1:08 PM EDT) Sodium 133 133 - 145 mmol/L LAB CHEMISTRY METHOD 10/02/2024 3:[facility] Potassium 4.3 3.5 - 5.5 mmol/L LAB CHEMISTRY METHOD 10/02/2024 3:50 PM [facility] Chloride 103 96 - 110 mmol/L LAB CHEMISTRY METHOD 10/02/2024 3:50 PM T [facility] CO2 24 21 - 32 mmol/L LAB CHEMISTRY METHOD 10/02/2024 3:50 PM EDT [facility] Anion Gap 6 3 - 11 LAB CHEMISTRY METHOD 10/02/2024 3:50 PM [facility] Glucose 83 70 - 100 mg/dL LAB CHEMISTRY METHOD 10/02/2024 3:50 PM T [facility] BUN 13 5 - 25 mg/dL LAB CHEMISTRY METHOD 10/02/2024 3:50 PM [facility] Creatinine 0.92 0.50 - 1.10 mg/dL LAB CHEMISTRY METHOD 10/02/2024 3:50 PM [facility] eGFR 88 >=60 mL/min/1. 73m2 LAB CHEMISTRY METHOD 10/02/2024 3:50 PM EDT [facility] Comment:Calculation based on the??Chronic Kidney Disease Epidemiology Collaboration (CKD-EPI) equation refit??without adjustment for race. BUN/Creatinine Ratio 14.1 LAB CHEMISTRY METHOD 10/02/2024 3:50 PM EDT [facility] Calcium 9.1 8.5 - 10.5 mg/dL LAB CHEMISTRY METHOD 10/02/2024 3:50 PM T [facility] AST (SGOT) 21 10 - 42 unit/L LAB CHEMISTRY METHOD 10/02/2024 3:50 PM T [facility] ALT (SGPT) 19 10 - 60 unit/L LAB CHEMISTRY METHOD 10/02/2024 3:50 PM T [facility] Alkaline Phosphatase 75 42 - 121 unit/L LAB CHEMISTRY METHOD 10/02/2024 3:50 PM EDT [facility] Total Protein 7.9 6.0 - 8.0 g/dL LAB CHEMISTRY METHOD 10/02/2024 3:50 PM EDT [facility] Albumin 3.9 3.2 - 5.0 g/dL LAB CHEMISTRY METHOD 10/02/2024 3:50 PM EDT [facility] Total Bilirubin 0.3 0.0 - 1.4 mg/dL LAB CHEMISTRY METHOD 10/02/2024 3:50 PM [facility] Blood Venous blood specimen / Unknown Venipuncture / Unknown 10/02/2024 1:08 PM EDT 10/02/2024 1:08 PM EDT us Pooja Gardner MD LAB BLOOD ORDERABLES Final Res ult [facility] [address] [place] [address], from Last 3 Months Insurance [facility] [employer] Care Teams Optomechanical Engineer Relationship Specialty Start Date End Date Pooja Gardner MD [address] [place] [address] PCP - General Internal Medicine 07/31/24
--- OUTSIDE RECORDS SUMMARY | 2024-10-29 11:29 | XMS_ITS | Encounter Summary ---
[facility] Address [address] [place] [address] Care Team Providers Care Tennis Camp Instructor Name Role Phone Pooja Gardner MD Primary Care Provider [phone] Reason for Visit * Reason Onset Date Comments Medication 10/29/2024 Encounter Details Date Type Department Care Team (Late st Contact Info) Description 10/29/2024 Telephone Internal Medicine - [facility] [address] [place], [place] [phone] Pooja Gardner MD [address] [place] [place], [place] Medication Social History Tobacco Use Types Packs/Day Years Used Date Smoking Tobacco: Never Passive Smoke Exposure: Never Smokeless Tobacco: Never Comments No Sex and Gender Information Value Date Recorded Sex Assigned at Not on file Legal Sex Female 6:51 AM EST Gender Identity Not on file Sexual Orientation Not on file documented as of this encounter Progress Notes * Cookie Silvestre MA - 10/29/2024 11:10 AM EDT Ferrous sulfate on reconcile list, patient states she has not been taking anything for years, last written 2020, pended medicine from reconcile list, previously given 02/14/21. Patient last seen by PCP 10/02/24, next appt 11/14/24. Component Ref Range & Units 3 wk ago Iron 40 - 150 mcg/dL 25 Low TIBC 250 - 450 mcg/dL 439 Iron Saturation 15 - 50 % 6 Low * Callie Hernandez - 10/29/2024 11:00 AM EDT Pt saw her lab results and is asking for iron tablets to be ordered and sent to [facility]. States she does need for fatigue and discuss with Dr Gardner at her apt . Labs were completed on 10/02/24. Please advise pt whether she needs supplements or not documented in this encounter Plan of Treatment Upcoming Encounters Date Type Department Care Team (Late st Contact Info) Description 11/14/2024 11:00 AM EDT Office Visit Internal Medicine - [address] [phone] Rose Norris NP [address] [place] [address] 11/20/2024 3:30 PM EDT Office Visit Internal Medicine - [address] [phone] Pooja Gardner MD [address] [place] [address] documented as of this encounter Visit Diagnoses Not on filedocumented in this encounter Historical Medications * This list may reflect changes made after this encounter. ferrous sulfate 325 mg (65 mg elemental iron) tablet Take 1 tablet (325 mg total) by mouth 1 (one) time each day. 02/14/2021 added in this encounter Care Teams Tennis Camp Instructor Relationship Specialty Start Date End Date Pooja Gardner MD [address] [place] [address] PCP - General Internal Medicine 07/31/24 documented as of this encounter
--- OUTSIDE RECORDS SUMMARY | 2024-10-29 11:29 | XMS_ITS | Encounter Summary ---
Author Organization [facility] Address [address] [place] [address] Care Team Providers Care Peoplesoft Hcm Consultant Name Role Phone Pooja Gardner MD Primary Care Provider [phone] Reason for Visit * Reason Comments Knee Pain R knee pain x today Encounter Details Date Type Department Care Team (Late st Contact Info) Description 10/27/2024 5:30 PM EDT Office Visit Walk-In Clinic - [facility] [address] [place] [address] Nicole Perkins NP [address] [place] [address] Acute pain of right knee (Primary Dx) Social History Tobacco Use Types Packs/Day Years Used Date Smoking Tobacco: Never Passive Smoke Exposure: Never Smokeless Tobacco: Never Comments No Sex and Gender Information Value Date Recorded Sex Assigned at Not on file Legal Sex Female 6:51 AM EST Gender Identity Not on file Sexual Orientation Not on file documented as of this encounter Last Filed Vital Signs Vital Sign Reading Time Taken Comments Blood Pressure 94/64 10/27/2024 5:21 PM EDT Pulse 79 10/27/2024 5:21 PM EDT Temperature 36.7 ??C (98 ??F) 10/27/2024 5:21 PM EDT Respiratory Rate - - Oxygen Saturation 99% 10/27/2024 5:21 PM EDT Inhaled Oxygen Concentration - - Weight - - Height - - Body Mass Index - - documented in this encounter Progress Notes * Nicole Perkins NP - 10/27/2024 5:30 PM EDT CHIEF COMPLAINT: Knee Pain (R knee pain x today ) HPI: Elis Sanders is a 24 y.o. old female who presents with right knee pain which started earlier today the patient endorses short lived self-limiting knee pain on the right no known injury which has subsequently resolved. ROS: Remainder of the 12 point review of symptoms unremarkable except for those idenitified in the HPI. PAST MEDICAL HISTORY: There are no active problems to display for this patient. No past surgical history on file. SOCIAL HISTORY: Social History Tobacco Use Smoking status: Never Passive exposure: Never Smokeless tobacco: Never Substance Use Topics Alcohol use: Not on file FAMILY HISTORY: No family history on file. No family status information on file. MEDICATIONS DISCONTINUED/REORDERED: There are no discontinued medications. ACTIVE MEDICATIONS: Outpatient Medications Marked as Taking for the 10/27/24 encounter (Office Visit) with Nicole Perkins NP Medication Sig Dispense Refill fluticasone propionate (FLONASE) 50 mcg/actuation nasal spray hydrOXYzine HCL (ATARAX) 25 mg tablet Take 1 tablet (25 mg total) by mouth. lurasidone (LATUDA) 20 mg tablet ALLERGIES: Allergies Allergen Reactions Cat Dander Unknown Dog Dander Unknown House Dust Mite Unknown PHYSICAL EXAM: Vitals: 10/27/24 1721 BP: 94/64 Pulse: 79 Temp: 36.7 ??C (98 ??F) TempSrc: Temporal SpO2: 99% CONSTITUTIONAL: alert, calm, cooperative, in no acute distress SKIN: warm and dry HEART: S1, S2 normal, regular rate and rhythm, no murmurs, rubs, gallops LUNGS: clear to auscultation bilaterally, no wheezes, rales, rhonchi EXTREMITIES: no clubbing, cyanosis, or edema No laxity strength 5/5 full active range of motion CMSto distal foot excellent PSYCH: mood/affect full range, speech clear, good eye contact, cooperative with exam LABS/IMAGING: IMPRESSION: Knee pain PLAN: The patient's PMH, problem list and medications were reviewed in reference to the above diagnosis/diagnoses. Ice rest follow-up with primary if signs and symptoms persist recur Advised to follow up with PCP if symptoms do not improve. Advised to follow up with UC or PCP immediately for new or worsening symptoms. Educated on red flags symptoms. Advised to go to the ER or call 911 for these symptoms. Patient understands the plan. Patient verbalizes agreement with the plan. No orders of the defined types were placed in this encounter. Nicole Perkins NP on 10/27/2024 at 5:24 PM EDT Today's documentation was made using voice recognition software. This note may contain grammatical errors secondary to this software. documented in this encounter Plan of Treatment Upcoming Encounters Date Type Department Care Team (Late st Contact Info) Description 11/14/2024 11:00 AM EDT Office Visit Internal Medicine - [address] [phone] Rose Norris NP [address] [place] [address] 11/20/2024 3:30 PM EDT [facility] [address] [place] [address] Pooja Gardner MD [address] [place] [address] documented as of this encounter Visit Diagnoses Diagnosis Acute pain of right knee- Primary documented in this encounter Care Teams Peoplesoft Hcm Consultant Relationship Specialty Start Date End Date Pooja Gardner MD [address] [place] [address] PCP - General Internal Medicine 07/31/24 documented as of this encounter
--- OUTSIDE RECORDS SUMMARY | 2024-10-29 11:29 | XMS_ITS | Clinical Summary ---
Author Organization [facility] Address [address] [place] [address] Care Team Providers Care Practice Advisor Name Role Phone Unavailable Primary Care Provider Unavailabl e Source Comments PLEASE NOTE, if this patient is a minor, it may be UNLAWFUL to discuss sensitive information that is contained in these records (such as FAMILY PLANNING, MENTAL HEALTH or SUBSTANCE ABUSE) with the minor patient's parent or other person without the patient's specific authorization.[facility] Immunizations Immunization Administration Dates Next Due PFIZER COVID VACCINE, PURPLE CAP, 12+ 08/16/2021 ,07/26/2021 Pfizer-BioNTech COVID-19 Vac cine Bivalent, (ALAN PFIZER-BIONTECH COVID-19 VACCINE BIVALENT, (ALAN CAP 11/16/2022 Social History Tobacco Use Types Packs/Day Years Used Date Smoking Tobacco: Never Assessed Social Connections Answer Date Recorded Social Connections and Isolation 0 11/16/2022 Financial Resource Strain Answer Date R ecorded Financial Resource Strain 0 2022 Stress Answer Date Recorded Stress 0 11/16/2022 Physical Activity Answer Date Recorded Physical Activity 0 11/16/2022 Food Insecurity Answer Date Recorded Food 0 11/16/2022 Transportation Needs Answer Date Record ed Transportation 0 11/16/2022 Housing Stability Answer Date Recorded Housing 0 11/16/2022 Safety and Environment Answer Date Mike rded Safety 0 11/16/2022 Utilities Answer Date Recorded Utilities 0 11/16/2022 Employment Answer Date Recorded Employment 0 11/16/2022 Comments Unknown Sex and Gender Information Value Date Recorded Sex Assigned at Female 11/16/2022 6:45 AM PDT Legal Sex Female 7:45 AM PDT Gender Identity Female 11/16/2022 6:45 AM PDT Sexual Orientation Straight 11/16/2022 6: 45 AM PDT Plan of Treatment Health Maintenance Due Date Last Done Comments Anxiety Screening 1998 HPV Screening 1998 Hepatitis C Screening 1998 Pap + HPV 1998 Tobacco Screening 1998 HIV Screening 2013 Imm-HPV (1 - 3-dose series) 2013 Relationship Safety Screening/Counseling 2013 Hypertension Screening (#1) 2016 Imm-DTaP/Tdap/Td (1 - Tdap) 2017 Imm-Hepatitis B (1 of 3 - 19 + 3-dose series) 2017 Cervical Cancer Screening 08/29/2019 Pap Smear 08/29/2019 [id number] ( season) 2024 11/16/2022, 08/16/2021, 07/26/2021 Imm-Influenza (#1) 2024 Alcohol and Drug Screen 06/18/2024 Depression Annual Screen 06/18/2024 Cervical Ablation/Cold-Knife Conization Discontinued Cervical Cryotherapy Discontinued Colposcopy Discontinued Endometrial Biopsy Discontinued Excision/Leep Discontinued HPV Genotyping Discontinued Vaginal Pap Discontinued Vulvoscopy Discontinued Insurance [facility]
[2024-10-29 12:08] LABS: Vitamin B12 1012 pg/mL (200-900)
== END 2024-10-29 10:26 | disposition home or self-care (01) ==
LOC: HO.LAB 10:25
PROVIDERS: Visit Provider Psychiatry & Neurology Neurology
DX: G93.40 Encephalopathy, unspecified (principal)
CPT/HCPCS: 36415; 82607